=== PATIENT | male | born 1950 | race Caucasian/White ===

== ENCOUNTER → 2016-09-27 | Day surgery (SDC) | payer MEDICARE, BC ==
[~2016-09-27] VITALS: Ht 188 cm; Wt 104.9 kg
[~2016-09-27] MED LIST: HYDROCHLOROTHIA25 MG PO; KEFLEX500 MG PO; NORVASC10 MG PO; PERCOCET 5-3251 EACH PO
--- NOTE | ~2016-09-27 | OR ---
PATIENT'S NAME: SHEILA ROMEO [facility] AGE: 66 Y [address] ROOM: [place] [address] LOCATION: [facility] – [place] ADMIT DATE: 09/27/2016 OR/Procedure Report DISCHARGE DATE: FAMILY PHYSICIAN: PHYSICIAN, NO ATTENDING PHYSICIAN: Torres Underwood SURGEON: Torres Underwood DO TRAIL[employer]STRUCTION WORKER: Staff. DATE OF PROCEDURE: 09/27/2016 PREOPERATIVE DIAGNOSIS: Right first carpometacarpal joint arthritis. POSTOPERATIVE DIAGNOSIS: Right first carpometacarpal joint arthritis. PROCEDURE PERFORMED: Right first carpometacarpal joint implant arthroplasty with the Stablyx implant system. ANESTHESIA: Regional plus general. ESTIMATED BLOOD LOSS: Less than 10 mL. TOURNIQUET TIME: Approximately 1 hour at 250 mmHg. COMPLICATIONS: None. DISPOSITION: Stable to recovery room. JUSTIFICATION FOR PROCEDURE: Sheila Romeo is a 66-year-old man with a history of intractable pain in the basilar joint of his right thumb. His history, physical exam and radiologic workup were consistent with osteoarthritis. He failed conservative treatment measures for this. He was counseled as to treatment options, risks versus benefits, and necessary afterward care. He gave informed consent to proceed with the right first carpometacarpal joint implant arthroplasty and any indicated procedures. PROCEDURE IN DETAIL: The patient was properly identified, both verbally and by name tag. He was taken to the operating suite and placed on the operating table in the supine position. The anesthesiologist administered a regional anesthetic in the right upper extremity and general anesthesia. Once adequate anesthesia was obtained, the right upper extremity was prepped and draped in usual sterile fashion. The extremity was exsanguinated with an Esmarch bandage and a tourniquet inflated to level of the arm to 250 mmHg. A #15 blade knife was used to make a longitudinal incision on dorsal aspect of the first metacarpal extending from the metacarpal neck distally to about the level of the STT joint proximally. Only the skin was incised. Under loupe PATIENT'S NAME: SHEILA ROMEO [facility] AGE: 66 Y [address] ROOM: [place] [address] LOCATION: [facility] [place] ADMIT DATE: 09/27/2016 OR/Procedure Report DISCHARGE DATE: FAMILY PHYSICIAN: PHYSICIAN, NO ATTENDING PHYSICIAN: Torres Underwood magnification, careful blunt dissection was carried down through the superficial to the deep fascia. Within the superficial fascia, the crossing branches of the dorsal sensory radial nerve were identified and carefully protected throughout the procedure. The extensor pollicis brevis tendon was localized and was freed up and retracted in an ulnar direction. An ulnar based flap of tissue was then elevated off the first carpometacarpal joint sharply with a fresh #15 blade knife. Care was taken to avoid dissection too far proximally over the trapezium in order to avoid devitalizing the bone. The trapdoor was elevated and retracted in ulnar direction. Care was taken to avoid dissection too far in ulnar direction in order to avoid injury to the radial vascular bundle. The first CMC joint was visualized. Small osteophytes were removed with the rongeurs. Loose bodies were also removed with the rongeur. The base of the first metacarpal was then removed with the power saw taking care to make the cut perpendicular to the long axis of the first metacarpal. About 5 mm of the base of the first metacarpal were removed. This bone was placed in a saline soaked bath for potentially use to later autograft bone grafting if needed. The internal aspect of the first CMC joint was now easily visualized. Hypertrophic inflammatory synovial tissue was resected. Care was taken to protect the ligamentous structures and the FCR tendon on the deep surface of the surgical plane. The trapezium was addressed next. A combination of the curved osteotome and rongeurs were used to remove the volar osteophyte and the contoured and curved rasps were used to recontour the trapezium back to its normal saddle shape. Osteophytes were removed off the trapezium medially and laterally as well as off the volar and dorsal surfaces. The wound was copiously irrigated with saline. The sizing devices included in the Stablyx instrument set were then used to size the trapezium. The starter awl was placed into the shaft of the first metacarpal at its center point and advanced distally. Fluoroscopy was used to confirm central placement of the awl. Once this was confirmed, the first metacarpal was sequentially broached up to the size measured from the trapezium. Care was taken to use fluoroscopy throughout this part of the procedure to ensure that the trajectory of the implant would be parallel to the long axis of the bone. The wound was copiously irrigated with saline. The trial implant 1 size smaller than what was measured to was placed and the joint was reduced. The thumb was placed through a range of motion passively and the implant was allowed to find its neutral axis of rotation. The neutral axis rotation was then marked in indelible ink on the first metacarpal for alignment of the real prosthetic device. Fluoroscopy was used with the trial implant in place while placing the joint through a range of motion. Cineradiography revealed the implant to be moving well and smoothly. There was no jumping or popping to suggest retained osteophytes or loose bodies on the deep surface. The trial implant was removed. The wound was once again irrigated with saline. The real implant was then opened. It was handled carefully and placed into the first metacarpal with the provided impactor and mallet from the Stablyx set. Once this was seated to the appropriate depth, the joint was reduced. The PATIENT'S NAME: SHEILA ROMEO [facility] AGE: 66 Y [address] ROOM: [place] [address] LOCATION: [facility] [place] ADMIT DATE: 09/27/2016 OR/Procedure Report DISCHARGE DATE: FAMILY PHYSICIAN: PHYSICIAN, NO ATTENDING PHYSICIAN: Torres Underwood reduction was visualized directly and fluoroscopically. The reduction was excellent. Stability was excellent. The radial ligamentous tissues were tightened up with the 2-0 FiberWire suture which was placed through bony drill holes and placed in the base of the first metacarpal prior to placing the real implant. The drill holes were made with 0.045 K-wires. The 2-0 FiberWire suture was used to adjust the tension on the radial collateral ligaments so that the joint would have excellent range of motion, but still be stable with adduction of the thumb. The wound was irrigated once again. The trapdoor fascial flap was then closed with 4-0 FiberWire suture in interrupted figure- of-eight fashion burying the knots and the extensor pollicis brevis tendon was allowed to return to its anatomic position. The wound was irrigated once again. The final construct was visualized in multiple planes fluoroscopically. The implant was well seated in the first metacarpal. The joint was anatomically reduced and the finish was excellent. Range of motion was full and there was no crepitus or popping or jumping to suggest retained osteophytes or loose bodies. The tourniquet was let down after approximately 1 hour and good capillary refill was noted distally. There was no arterial bleeding noted. Hemostasis was obtained with direct pressure and minimal bipolar electrocautery. The dorsal neurovascular structures were reexplored. There was no evidence of iatrogenic injury to any other branch of the radial sensory nerve nor to the vascular leash along the ulnar border of the plane of dissection. The flexion and extension through the wrist yielded normal tenodesis through the thumb indicating appropriate tension on the flexor and extensor mechanism. The skin was then closed with 5-0 nylon suture in interrupted mattress stitch fashion. A sterile bulky bundle dressing was applied. A short-arm thumb spica splint was applied to protect the repair. The patient was aroused from general anesthesia, extubated by the anesthesiologist and taken to the recovery room in good condition. Immediate postoperative examination in the recovery room showed good capillary refill distally in all 5 digits. Light touch sensation and motor function distally were equivocal due to persistence of the regional blockade. DO BELIA ARRIAZA/wendyl /[id number] d: 10/03/16 0322 t: 10/06/16 0809, OPERATIVE SUMMARY
== END | disposition disaster alternative care site (69) ==
LOC: GPOC 09-20 11:00 → GSDC 10:07
PROC: 0RQS0ZZ Repair Right Carpometacarpal Joint, Open Approach (ICD-10-PCS; principal; 2016-09-27)
DX: M18.11 Unilateral primary osteoarthritis of first carpometacarpal joint, right hand (principal); I10 Essential (primary) hypertension; Z98.890 Other specified postprocedural states
CPT/HCPCS: C1776; J0690; J7030; J7120